=== PATIENT | male | born 1980 | race Caucasian/White ===

== ENCOUNTER 2017-02-14 18:02 | Emergency (ER) | payer SELFPAY ==
[2017-02-14 18:05] VITALS: BP 142/80
[2017-02-14] MEDS ORDERED: FENTANYL PF 100 MCG/2 ML VIAL. IV ONE (18:15)
[2017-02-14] MEDS ORDERED: ONDANSETRON PF 4 MG/2 ML VIAL. IV ONE (18:15)
[2017-02-14] MEDS ORDERED: IV NORMAL SALINE 1,000ML 1,000 ML IV ONE (18:15)
--- NOTE | 2017-02-14 18:17 | ED.ADGEN ---
Adult General HPI HPI Patient is a 36-year-old male presents emergency department complaining of right lower quadrant pain. He states that he noticed some mild discomfort earlier in the week but over the last 2 days has had increasing pain. He has had associated diaphoresis and nausea. Today he has had significant anorexia and subjective fever. (LESLIE CHRISTIANSON MD) Review of Systems Review of Systems Constitutional: Denies fever or chills [] Eyes: Denies change in visual acuity, redness, or eye pain [] HENT: Denies nasal congestion or sore throat [] Respiratory: Denies cough or shortness of breath [] Cardiovascular: No additional information not addressed in HPI [] GI: Denies abdominal pain, nausea, vomiting, bloody stools or diarrhea [] : Denies dysuria or hematuria [] Musculoskeletal: Denies back pain or joint pain [] Integument: Denies rash or skin lesions [] Neurologic: Denies headache, focal weakness or sensory changes [] Endocrine: Denies polyuria or polydipsia [] (LESLIE CHRISTIANSON MD) Current Medications Current Medications Current Medications Medications (Trade) Dose Ordered Sig/Julienne Start Time Stop Time Status Last Admin Dose Admin Fentanyl Citrate 75 mcg 75 mcg 1X ONCE 02/14/17 18:15 02/14/17 18:40 DC 02/14/17 18:30 75 MCG Iohexol (Omnipaque 300 Mg/ml) 75 ml 1X ONCE 02/14/17 18:30 02/14/17 18:40 DC 02/14/17 18:45 75 ML Ondansetron HCl (Zofran) 4 mg 1X ONCE 02/14/17 18:15 02/14/17 18:40 DC 02/14/17 18:30 4 MG Sodium Chloride (Iv Sodium Chloride 0.9% 1,000ml) 1,000 ml @ 1,000 mls/hr 1X ONCE 02/14/17 18:15 02/14/17 19:15 DC 02/14/17 18:30 1,000 MLS/HR (MK ISBELL MD) Current Medications Current Medications Medications (Trade) Dose Ordered Sig/Julienne Start Time Stop Time Status Last Admin Dose Admin Fentanyl Citrate 75 mcg 75 mcg 1X ONCE 02/14/17 18:15 17 18:40 DC 02/14/17 18:30 75 MCG Iohexol (Omnipaque 300 Mg/ml) 75 ml 1X ONCE 02/14/17 18:30 02/14/17 18:40 DC 02/14/17 18:45 75 ML Ondansetron HCl (Zofran) 4 mg 1X ONCE 02/14/17 18:15 17 18:40 DC 02/14/17 18:30 4 MG Sodium Chloride (Iv Sodium Chloride 0.9% 1,000ml) 1,000 ml @ 1,000 mls/hr 1X ONCE 02/14/17 18:15 02/14/17 19:15 DC 02/14/17 18:30 1,000 MLS/HR (LESLIE CHRISTIANSON MD) Allergies Allergies Allergies Coded Allergies Type Severity Reaction Last Updated Verified No Known Drug Allergies 02/14/17 No (MK ISBELL MD) Allergies Allergies Coded Allergies Type Severity Reaction Last Updated Verified No Known Drug Allergies 02/14/17 No (LESLIE CHRISTIANSON MD) Physical Exam Physical Exam Constitutional: Well developed, well nourished, mild distress, non-toxic appearance. [] HENT: Normocephalic, atraumatic, bilateral external ears normal, oropharynx moist, no oral exudates, nose normal. [] Eyes: PERRLA, EOMI, conjunctiva normal, no discharge. [] Neck: Normal range of motion, no tenderness, supple, no stridor. [] Cardiovascular:Heart rate regular rhythm, no murmur [] Lungs & Thorax: Bilateral breath sounds clear to auscultation [] Abdomen: Bowel sounds normal, soft, moderate right lower quadrant tenderness to palpation with guarding as well as a positive Rovsing sign, positive McBurney, no masses, no pulsatile masses. [] Skin: Warm, dry, no erythema, no rash. [] Back: No tenderness, no CVA tenderness. [] Extremities: No tenderness, no cyanosis, no clubbing, ROM intact, no edema. [] Neurologic: Alert and oriented X 3, normal motor function, normal sensory function, no focal deficits noted. [] Psychologic: Affect normal, judgement normal, mood normal. [] (LESLIE CHRISTIANSON MD) Current Patient Data Vital Signs Vital Signs Date Time Temp Pulse Resp B/P Pulse Ox O2 Delivery O2 Flow Rate FiO2 02/14/17 19:05 18 98 Room Air 02/14/17 18:05 98.2 105 (MK ISBELL MD) Vital Signs Vital Signs Date Time Temp Pulse Resp B/P Pulse Ox O2 Delivery O2 Flow Rate FiO2 02/14/17 19:05 18 98 Room Air 02/14/17 18:05 98.2 105 (LESLIE CHRISTIANSON MD) Lab Results Laboratory Tests Test 02/14/17 18:11 02/14/17 18:19 02/14/17 18:25 Urine Collection Type Unknown Urine Color Yellow Urine Clarity Clear Urine pH 6.5 Urine Specific [place] 1.020 Urine Protein Neg (NEG-TRACE) Urine Glucose (UA) Negmg/dL (NEG) Urine Ketones (Stick) Negmg/dL (NEG) Urine Blood Neg (NEG) Urine Nitrite Neg (NEG) Urine Reducing Substances % (NEG) Urine Bilirubin Neg (NEG) Urine Urobilinogen Dipstick 1mg/dL (0.2 mg/dL) Urine Leukocyte Esterase Neg (NEG) White Blood Count 6.9x10^3/uL (4.0-11.0) Red Blood Count 5.51x10^6/uL (4.30-5.70) Hemoglobin 17.3g/dL (13.0-17.5) Hematocrit 50.8% (39.0-53.0) Mean Corpuscular Volume 92fL (79-100) Mean Corpuscular Hemoglobin 31pg (25-35) Mean Corpuscular Hemoglobin Concent 34g/dL (31-37) Red Cell Distribution Width 13.1% (11.5-14.5) Platelet Count 248x10^3/uL (140-400) Neutrophils (%) (Auto) 62% (31-73) Lymphocytes (%) (Auto) 29% (24-48) Monocytes (%) (Auto) 5% (0-9) Eosinophils (%) (Auto) 3% (0-3) Basophils (%) (Auto) 1% (0-3) Neutrophils # (Auto) 4.3x10^3uL (1.8-7.7) Lymphocytes # (Auto) 2.0x10^3/uL (1.0-4.8) Monocytes # (Auto) 0.4x10^3/uL (0.0-1.1) Eosinophils # (Auto) 0.2x10^3/uL (0.0-0.7) Basophils # (Auto) 0.0x10^3/uL (0.0-0.2) Lactic Acid Level 1.7mmol/L (0.4-2.0) Alanine Aminotransferase (ALT) 31U/L (16-63) Alkaline Phosphatase 63U/L (46-116) Lipase 138U/L (73-393) Urine Opiates Screen Neg (NEG) Urine Methadone Screen Neg (NEG) Urine Barbiturates Neg (NEG) Urine Phencyclidine Screen Neg (NEG) Urine Amphetamine/Methamphetamine Neg (NEG) Urine Benzodiazepines Screen Neg (NEG) Urine Cocaine Screen Neg (NEG) Urine Cannabinoids Screen Neg (NEG) Urine Ethyl Alcohol Neg (NEG) POC Hemoglobin 16.7gm/dL POC Hematocrit 49% POC Sodium 143mmol/L (135-145) POC Potassium 3.9mmol/L (3.5-5.0) POC Chloride 103mmol/L (98-110) POC Total CO2 25mmol/L (23-32) Anion Gap 20mmol/L (6-14) H POC Blood Urea Nitrogen 16mg/dL (8-26) POC Creatinine 0.6mg/dL (0.5-1.4) Glucose Level 113mg/dL (60-99) H POC Ionized Calcium ([place]) 1.13mmol/L (1.13-1.32) (MK ISBELL MD) Lab Results Laboratory Tests Test 02/14/17 18:11 02/14/17 18:19 02/14/17 18:25 Urine Collection Type Unknown Urine Color Yellow Urine Clarity Clear Urine pH 6.5 Urine Specific [place] 1.020 Urine Protein Neg (NEG-TRACE) Urine Glucose (UA) Negmg/dL (NEG) Urine Ketones (Stick) Negmg/dL (NEG) Urine Blood Neg (NEG) Urine Nitrite Neg (NEG) Urine Reducing Substances % (NEG) Urine Bilirubin Neg (NEG) Urine Urobilinogen Dipstick 1mg/dL (0.2 mg/dL) Urine Leukocyte Esterase Neg (NEG) White Blood Count 6.9x10^3/uL (4.0-11.0) Red Blood Count 5.51x10^6/uL (4.30-5.70) Hemoglobin 17.3g/dL (13.0-17.5) Hematocrit 50.8% (39.0-53.0) Mean Corpuscular Volume 92fL (79-100) Mean Corpuscular Hemoglobin 31pg (25-35) Mean Corpuscular Hemoglobin Concent 34g/dL (31-37) Red Cell Distribution Width 13.1% (11.5-14.5) Platelet Count 248x10^3/uL (140-400) Neutrophils (%) (Auto) 62% (31-73) Lymphocytes (%) (Auto) 29% (24-48) Monocytes (%) (Auto) 5% (0-9) Eosinophils (%) (Auto) 3% (0-3) Basophils (%) (Auto) 1% (0-3) Neutrophils # (Auto) 4.3x10^3uL (1.8-7.7) Lymphocytes # (Auto) 2.0x10^3/uL (1.0-4.8) Monocytes # (Auto) 0.4x10^3/uL (0.0-1.1) Eosinophils # (Auto) 0.2x10^3/uL (0.0-0.7) Basophils # (Auto) 0.0x10^3/uL (0.0-0.2) Lactic Acid Level 1.7mmol/L (0.4-2.0) Alanine Aminotransferase (ALT) 31U/L (16-63) Alkaline Phosphatase 63U/L (46-116) Lipase 138U/L (73-393) Urine Opiates Screen Neg (NEG) Urine Methadone Screen Neg (NEG) Urine Barbiturates Neg (NEG) Urine Phencyclidine Screen Neg (NEG) Urine Amphetamine/Methamphetamine Neg (NEG) Urine Benzodiazepines Screen Neg (NEG) Urine Cocaine Screen Neg (NEG) Urine Cannabinoids Screen Neg (NEG) Urine Ethyl Alcohol Neg (NEG) POC Hemoglobin 16.7gm/dL POC Hematocrit 49% POC Sodium 143mmol/L (135-145) POC Potassium 3.9mmol/L (3.5-5.0) POC Chloride 103mmol/L (98-110) POC Total CO2 25mmol/L (23-32) Anion Gap 20mmol/L (6-14) H POC Blood Urea Nitrogen 16mg/dL (8-26) POC Creatinine 0.6mg/dL (0.5-1.4) Glucose Level 113mg/dL (60-99) H POC Ionized Calcium ([place]) 1.13mmol/L (1.13-1.32) (LESLIE CHRISTIANSON MD) EKG EKG [] (LESLIE CHRISTIANSON MD) Radiology/Procedures Radiology/Procedures [] (LESLIE CHRISTIANSON MD) Course & Med Decision Making Course & Med Decision Making Pertinent Labs and Imaging studies reviewed. (See chart for details) Patient is in a moderate amount of discomfort. Timeline seems a bit long for an acute appendicitis but the rest of his story seems fairly convincing along with his exam. We will start some IV fluids, Zofran, fentanyl for symptom relief. I have ordered labs as well as a CT with contrast to evaluate primarily for possible appendicitis. Urine dip is reassuring negative for blood or any signs of infection. Care turned over to oncoming physician at 1800. [] (LESLIE CHRISTIANSON MD) Course & Med Decision Making Patient checked out to me by prior emergency physician pending labs and CT scan. In speaking with the patient, he has had abdominal pain, mostly in the right lower quadrant, for the past week. He says he had some subjective fever and chills but no temperature. No runny nose or sore throat. Is no chest pain or shortness of breath. Some occasional nausea but no vomiting. He's had decreased by mouth intake today, did not eat breakfast or lunch but did eat dinner. He has no change in bladder habits. He's had a slight amount of diarrhea without blood or bilious material. He has no obvious constipation. He denies any other acute complaints. Labs today are clinically unremarkable. His white count stable there is no evidence of UTI. CT scan of the abdomen and pelvis shows some mild constipation per radiology and a minimal liver cyst. At time of physician evaluation the patient looks like is doing fairly well. He still does have some abdominal tenderness, mostly in the right side, lower quadrant greater than upper. His abdomen is soft and there is no masses or peritoneal findings noted. He appears to be in no acute discomfort distress. Discussed with the patient is mother most likely diagnosis of abdominal pain related to constipation. We'll go ahead and give him some Go[place]TELY for home for this. I did show him the CT and demonstrates findings. We discussed home care of constipation including rest, increasing fluids, increasing physical activity , fruit, and fiber in the diet as well. He does have some problems with hemorrhoids I indicated the constipation will only make this worse, so he really needs to follow dietary improvement. He voices understanding. We also discussed that while I think this is related to constipation. There may be something else going on that is not readily obvious, and should he have increasing pain, fever, vomiting, or other complaints, he should follow up with primary care or return to the ER immediately as needed if worsen anyway. Patient voices understanding of the discharge plan. He looks well, in no acute discomfort distress, ambulatory in the ER, and okay for discharge home at this time. (MK ISBELL MD) Final Impression Final Impression [] Problems: (LESLIE CHRISTIANSON MD) Dragon Disclaimer Dragon Disclaimer This electronic medical record was generated, in whole or in part, using a voice recognition dictation system. (LESLIE CHRISTIANSON MD) LESLIE CHRISTIANSON MD Feb 14, 2017 18:17 MK ISBELL MD Feb 14, 2017 19:54
[2017-02-14 18:29] LABS: HEMOGLOBIN ISTAT 16.7 gm/dL; POTASSIUM ISTAT 3.9 mmol/L (3.5-5.0)
[2017-02-14] MEDS ORDERED: IOHEXOL 300 MG/ML 75 ML VIAL. IV ONE (18:30)
[2017-02-14 18:36] LABS: BASO % 1 % (0-3); EOS # 0.2 x10^3/uL (0.0-0.7); EOS % 3 % (0-3); HEMATOCRIT 50.8 % (39.0-53.0); HEMOGLOBIN 17.3 g/dL (13.0-17.5); LYMPH % 29 % (24-48); MEAN CORPUSCULAR HEMOGLOBIN 31 pg (25-35); MEAN CORPUSCULAR HGB CONC 34 g/dL (31-37); MEAN CORPUSCULAR VOLUME 92 fL (79-100); MONO # 0.4 x10^3/uL (0.0-1.1); MONO % 5 % (0-9); NEUT # 4.3 x10^3uL (1.8-7.7); NEUT % 62 % (31-73); PLATELET COUNT 248 x10^3/uL (140-400); RED BLOOD COUNT 5.51 x10^6/uL (4.30-5.70); RED CELL DISTRIBUTION WIDTH 13.1 % (11.5-14.5); WHITE BLOOD COUNT 6.9 x10^3/uL (4.0-11.0)
[2017-02-14 18:42] LABS: BARBITURATES NEG (NEG); BENZODIAZEPINES NEG (NEG); CANNABINOIDS NEG (NEG); COCAINE NEG (NEG); METHADONE NEG (NEG); OPIATES NEG (NEG); PHENCYCLIDINE NEG (NEG)
[2017-02-14 18:46] LABS: AMPHETAMINE/METHAMPHETAMINE NEG (NEG)
[2017-02-14 18:47] LABS: ALK PHOS 63 U/L (46-116); ALT (SGPT) 31 U/L (16-63); LIPASE 138 U/L (73-393)
[2017-02-14 19:20] LABS: BILIRUBIN,URINE NEG (NEG); CLARITY,URINE CLEAR; COLOR,URINE YELLOW; GLUCOSE,URINE NEG (NEG); NITRITE,URINE NEG (NEG); UROBILINOGEN,URINE 1 mg/dL (0.2 mg/dL)
--- NOTE | 2017-02-14 19:23 | RAD ---
PROCEDURE CT of the abdomen and pelvis with contrast HISTORY Severe right lower quadrant pain and tenderness. Nausea and chills. Diarrhea for 3 or 4 days. Stomach ulcers. TECHNIQUE Axial images obtained after intravenous contrast. No oral contrast administration. COMPARISON Images from a study of June 24, 2010 although the report is not available. FINDINGS Tiny subpleural nodule on the uppermost slice at the right posterior lateral lung base measuring 3 millimeters. This appears similar as on the prior study. Images were not obtained dynamically, but rather delayed, after contrast injection was complete, which could limit evaluation of solid viscera, vasculature and GI tract. Liver demonstrates a tiny low-density lesion in the right lobe, only measuring about 4 millimeters, too small characterize. Spleen unremarkable. Pancreas unremarkable. No adrenal mass. There is symmetric excretion of contrast into both renal collecting systems. No calcified gallstone No aortic aneurysm. No significant lymph node enlargement. The stomach is distended with food. No evidence of bowel obstruction. There is some retained stool in the rectum and to a lesser extent the colon. No evidence of pericolonic inflammatory type change. The appendix appears unremarkable. No evidence of ascites. Urinary bladder demonstrates mild wall thickening but that may be secondary to limited distention. IMPRESSION 1. Mild constipation. 2. Mild urinary bladder wall thickening, could be due to incomplete distention versus cystitis. 3. Tiny liver lesion is too small to characterize, could just represent a cyst. 4. Pulmonary nodule is stable since prior exam. Electronically signed by: Víctor Fermin MD (Feb 14, 2017 19:21:51)
== END 2017-02-14 20:00 | disposition home or self-care (01) ==
LOC: ER 18:02
DX: K59.00 Constipation, unspecified (principal); R10.31 Right lower quadrant pain; R50.9 Fever, unspecified; R61 Generalized hyperhidrosis; R63.0 Anorexia
CPT/HCPCS: 36415; 74177; 80047; 80305; 81003; 83605; 83690; 84075; 84460; 85027; 96361; 96374; 96375; 99285; J2405; J3010; Q9967; G0481; J7030

== ENCOUNTER 2017-02-24 15:00 | Emergency (ER) | payer SELFPAY ==
[~2017-02-24] VITALS: Ht 190.5 cm; Wt 120.2 kg
[2017-02-24 15:00] VITALS: BP 114/76
--- NOTE | 2017-02-24 17:22 | PHYS DOC ---
Past History Past Medical History: Hypertension, Hypothyroid Past Surgical History: Tonsillectomy, Other Alcohol Use: None Drug Use: None Adult General Chief Complaint Chief Complaint: MULTIPLE COMPLAINTS HPI HPI 36-year-old gentleman with generalized fullness of the abdomen without focality who is been having constipation issues over the past 3 weeks. He recently had a CT the abdomen pelvis that was negative. The fullness that he describes as a nonradiating mild pain. Exacerbated by passing stool. And associated with a hemorrhoid that he has had for the past few days. Location abdomen. Duration intermittent. No alleviating factors present. Review of systems is negative for chest pain shortness of breath fevers chills nausea vomiting. All other review of systems is negative unless otherwise noted in history of present illness. Review of Systems Review of Systems SEE ABOVE. Allergies Allergies Allergies Coded Allergies Type Severity Reaction Last Updated Verified No Known Drug Allergies 02/14/17 No Physical Exam Physical Exam Constitutional: Well developed, well nourished, no acute distress, non-toxic appearance. HENT: Normocephalic, atraumatic, bilateral external ears normal, oropharynx moist, no oral exudates, nose normal. [] Eyes: PERRLA, EOMI, conjunctiva normal, no discharge. Neck: Normal range of motion, no tenderness, supple, no stridor. [] Cardiovascular:Heart rate regular rhythm, no murmur Lungs & Thorax: Bilateral breath sounds clear to auscultation [] Abdomen: Soft nontender abdomen without rebound tenderness or guarding present. Negative McBurneys point. Negative Oglesby sign. No ecchymosis present. Skin: Warm, dry, no erythema, no rash. Back: No tenderness, no CVA tenderness. [] Extremities: No tenderness, no cyanosis, no clubbing, ROM intact, no edema. [] Neurologic: Alert and oriented X 3, normal motor function, normal sensory function, no focal deficits noted. Psychologic: Affect normal, judgement normal, mood normal. EKG EKG [] Radiology/Procedures Radiology/Procedures [] Course & Med Decision Making Course & Med Decision Making Pertinent Labs and Imaging studies reviewed. (See chart for details) [] 36-year-old male presenting to the emergency department with abdominal pain fullness and hemorrhoids. Patient was afebrile with a normal heart rate. Pertinent physical exam findings showed a soft nontender abdomen. I instructed the patient that I would prescribe him stool softeners and recommended sitz baths for his hemorrhoid. Unfortunately we had a critical patient in the department at that time and the patient needed to leave. He then eloped without being discharged. Dragon Disclaimer Dragon Disclaimer This chart was dictated in whole or in part using Voice Recognition software in a busy, high-work load, and often noisy Emergency Department environment. It may contain unintended and wholly unrecognized errors or omissions. Departure Departure: Impression: Primary Impression: Abdominal pain Condition: STABLE Referrals: PCP,NO (PCP) QUENTIN SANDY MD Feb 24, 2017 17:22
== END 2017-02-24 16:38 | disposition left against medical advice (07) ==
LOC: ER 15:00
DX: E03.9 Hypothyroidism, unspecified (principal); I10 Essential (primary) hypertension; R10.84 Generalized abdominal pain
CPT/HCPCS: 99281